=== PATIENT | female | born 1930 | race Caucasian/White ===

== ENCOUNTER 2017-06-09 13:05 | Inpatient (IN) | payer MEDICARE, BC, MEDICAID ==
[2017-06-09] MEDS ORDERED: Morphine 2 MG/ML SYRINGE ONE (14:36)
[2017-06-09 14:47] LABS: #Monocytes 0.4 thou/uL (0.11-0.59); #Neutrophils 6.8 thou/uL (1.40-6.50); %Basophils 0.1 % (0.0-1.0); %Eosinophils 0.2 % (0.0-10.0); %Lymphocytes 11.9 % (21.0-51.0); %Monocytes 5.2 % (0.0-10.0); Hematocrit 41.9 % (36.0-47.0); Mean Platelet Volume 7.1 fL (7.4-10.4); Red Blood Cell (RBC) Count 4.74 mill/uL (4.20-5.40); White Blood Cell (WBC) Count 8.2 thou/uL (4.8-10.8)
[2017-06-09 14:53] LABS: PTT 26.8 SEC (22.9-36.1)
[2017-06-09 15:04] LABS: Bilirubin Negative (Negative); Blood, Urine Trace (Negative); Glucose, Urine (Dipstick) Negative (Negative); Ketone, Urine Negative (Negative); Nitrite Negative (Negative); Protein, Urine (Dipstick) Negative (Neg-Trace); Urobilinogen 0.2 mg/dL (0.2-1.0)
[2017-06-09 15:05] LABS: Bacteria/HPF 4+ HPF (None Seen); RBC/HPF 0-3 HPF (0-3); Squamous Epithelial 0-3 HPF (0-3)
[2017-06-09 15:05] LABS: Lactic Acid - Sepsis 1.7 mmol/L (0.5-2.2)
[2017-06-09 15:08] LABS: ALT (SGPT) 17 U/L (8-55); AST (SGOT) 18 U/L (5-34); Alkaline Phosphatase 92 U/L (40-150); Anion Gap 14 mmol/L (10-20); BUN (Urea Nitrogen) 22 mg/dL (9.8-20.1); Bilirubin, Total 0.5 mg/dL (0.2-1.2); CK (CPK) 56 U/L (29-168); Calc. Creatinine Clearance 0 mL/min (70-130); Calcium 9.7 mg/dL (7.8-10.44); Carbon Dioxide 23 mmol/L (23-31); Chloride 107 mmol/L (98-107); Estimated GFR-MDRD 71; Globulin 3.7 g/dL (2.4-3.5); Protein, Total 7.4 g/dL (6.0-8.3)
[2017-06-09 15:19] LABS: WBC/HPF 21-50 HPF (0-3)
[2017-06-09 15:20] LABS: Hyaline Casts/LPF 0-3 HYALINE CAST LPF (0-3 Hyaline); Yeast-All Forms None Seen HPF (None Seen)
--- NOTE | 2017-06-09 15:31 | RAD ---
RADIOGRAPH PELVIS ONE VIEW: Date: 06-09-17 Time: 3:09 p.m. History: 87-year-old female with traumatic right hip pain after fall. FINDINGS: There is fracture of the right femoral neck with mild superior and mild lateral displacement of the distal fragment. No dislocation. Pelvic ring appears to be grossly intact but the osteopenia could o bscure a mildly displaced or nondisplaced fracture. Degenerative changes at lower lumbar spine and l umbosacral junction. IMPRESSION: Acute, traumatic, closed, displaced right femoral neck fracture. POS: [facility]
--- NOTE | 2017-06-09 15:32 | RAD ---
RADIOGRAPH RIGHT HIP 2 VIEWS: Date: 06/09/17 HISTORY: 87-year-old female status post acute right hip trauma due to fall. FINDINGS: Transverse fracture at subcapital region. Superior and lateral displacement of distal fragment. No d islocation. IMPRESSION: Acute, traumatic, closed, displaced, right subcapital femoral neck fracture. POS: [facility]
[2017-06-09] MEDS ORDERED: cefTRIAXone\\ROCEPHIN 1 GM VIAL ONE (15:42)
[2017-06-09] MEDS ORDERED: Ondansetron HCl/PF 4 MG/2 ML Vial IVP PRN (16:32)
[2017-06-09] MEDS ORDERED: Dextrose 50% Abboject 50 ML SYRINGE SLOW IVP PRN (16:32)
[2017-06-09] MEDS ORDERED: Morphine 2 MG/ML SYRINGE IVP PRN (16:32)
[2017-06-09] MEDS ORDERED: Ondansetron ODT 4 MG TAB PO PRN (16:32)
[2017-06-09] MEDS ORDERED: Dextrose 5% in Water 1,000 ML IV PRN (16:32)
[2017-06-09] MEDS ORDERED: traMADol HCl 50 MG TAB PO PRN ×2 (16:47)
[2017-06-09] MEDS: Acetaminophen 1,000 MG in Premix Bag 1 BAG IVPB SCH ×2 (18:14→23:52)
[2017-06-09] MEDS: Sodium Chloride 0.9% 1,000 ML IV SCH ×2 (18:18→23:52)
--- NOTE | 2017-06-09 18:34 | HP-2 ---
CODE STATUS: FULL. This was discussed with patient's daugther and patient's POA. ATTENDING PHYSICIAN: Noble Hernandez DO PGY-1: Naima Morton DO CHIEF COMPLAINT: Fall HISTORY OF PRESENT ILLNESS: This is a pleasant 87-year-old female with past medical history significant for hypothyroidism, hypertension, and severe Alzheimer's dementia that presented as a transfer from [facility] secondary to a right hip fracture after sustaining a ground level fall. Patient resides at [facility]. Staff at the facility witnessed the patient slowly falling to the ground and landing on her right hip. EMS was called. She was taken to a freestanding emergency room and after a CT was performed, patient was found to have a right hip fracture. She was transferred here to [facility] at the request of family members. Patient had a pelvic x- ray as well as a right hip x-ray performed at [facility] ED. The Orthopedic Service as well as Trauma Service were called to evaluate and then admit the patient. PAST MEDICAL HISTORY: 1. Severe Alzheimer's dementia. 2. Hypertension. 3. Hypothyroidism. 4. Major depressive disorder. 5. Hypokalemia. 6. Iron deficiency anemia. PAST SURGICAL HISTORY: 1. Colostomy 7-8 years ago. 2. Skin cancer excision on upper extremity. ALLERGIES: No allergies have been recorded. MEDICATIONS: 1. Acetaminophen tablet 500 mg q.6 hours as needed for elevated temperature or mild pain. 2. Amlodipine besylate 5 mg daily for essential hypertension. 3. Aricept tablet 10 mg 1 tablet a day for Alzheimer's disease. 4. Ferrous sulfate tablet 325 mg daily. 5. Levothyroxine sodium 25 mcg daily. 6. Potassium tablet 20 mEq 2 times per day. 7. Remeron 7.5 mg daily. 8. Saccharomyces boulardii capsule b.i.d. 9. Zoloft 12.5 mg daily. FAMILY HISTORY: Noncontributory. SOCIAL HISTORY: The patient is currently a long term resident at [facility]. Of note, she has severe Alzheimer's dementia. Her guardian is her . However, when is not available, the daughter is the person that is able to sign on behalf of the patient. This was discussed with the family in the room. The patient's daughter states that she has a notarized letter stating these facts. Patient has no history of alcohol, tobacco or drug use. REVIEW OF SYSTEMS: Limited secondary to patient's severe Alzheimer's dementia. PHYSICAL EXAMINATION: VITAL SIGNS: Blood pressure 141/82, pulse 69, respiratory rate 20, temperature 98.0 degrees Fahrenheit, oxygen saturation 95% on room air. GENERAL: The patient is alert and oriented x1 in no acute distress. She appears well-developed and then she will respond to examiner if called by her preferred name, which is Tory. EYES: Pupils equally round and reactive to light and accommodation. Extraocular muscles intact. Conjunctiva within normal limits. NECK: Supple. CARDIOVASCULAR: The patient has regular rate and rhythm. A 3/6 systolic murmur was noted on exam. Radial pulses and pedal pulses 2+. RESPIRATORY: Normal respiratory effort, no retractions. LUNGS: Clear to auscultation bilaterally. SKIN: Warm and dry without cyanosis. ABDOMEN: Soft, nontender to palpation and bowel sounds are positive in all four quadrants. EXTREMITIES: Upper and lower extremities are neurovascularly intact x4. MUSCULOSKELETAL: Patient is able to move her lower extremities. NEUROLOGIC: No focal deficits. LABORATORY DATA: 1. CBC: White blood cell count 8.2, hemoglobin 13.9, hematocrit 41.9, platelets 183. 2. CMP: Sodium 140, potassium 4.1, chloride 107, bicarbonate 23, BUN 22, creatinine 0.77, glucose 98, calcium 9.7, total bilirubin 0.5, AST 18, ALT 17, alkaline phosphatase 92, total protein 7.4, and albumin 3.7. 3. Lactic acid 1.7. 4. Creatinine kinase 56. 5. Coagulation labs: PT 15.0, INR 1.2, PTT 26.8. 6. Urinalysis showed trace blood, large leukocyte esterase, 21-50, urine white blood cells with 0-3 urine squamous epithelial cells and 4+ urine bacteria. 7. Hip x-ray shows acute traumatic closed displaced right subcapital femoral neck fracture. 8. Pelvis x-ray shows acute traumatic closed displaced right femoral neck fracture. ASSESSMENT AND PLAN: This is an 87-year-old female status post ground level fall. 1. Status post ground level fall. 2. Acute traumatic closed displaced right subcapital femoral neck fracture. 3. The patient is hemodynamically stable. 4. Hypertension. 5. Hypothyroidism. 6. Severe Alzheimer's dementia. The patient will be admitted to the Trauma Service. Orthopedic service has seen and evaluated the patient. Their plan is to take the patient back to the OR once available. This might be later this evening or tomorrow morning. This has been discussed with the family. All paperwork for consent is to be signed at some point today as the daughter may have to leave in the morning and will otherwise not be able to do so. We will continue to monitor the patient and provide adequate pain control. The patient will remain n.p.o. for now. If the decision is made to proceed with surgery tomorrow, then we will let patient eat and make her n.p.o. at midnight. Additionally, we will continue with her home medications for hypertension, hypothyroidism, and Alzheimer's dementia when she is no longer n.p.o. The patient was seen and evaluated by Dr. Noble Hernandez. HANG
[2017-06-09 18:56] VITALS: BMI 20.7
--- NOTE | 2017-06-09 19:08 | RAD ---
RADIOGRAPH CHEST 1 VIEW: 06/09/17 HISTORY: 87-year-old female. Preoperative clearance. FINDINGS: The thoracic aorta is tortuous and ectatic. There is no evidence of air space density, pneumothorax , or pulmonary edema. The lateral costophrenic angles are sharp. IMPRESSION: 1) No acute pulmonary findings. 2) Ectasia of thoracic aorta. blaze [] POS: [facility]
--- NOTE | 2017-06-09 20:45 | CON ---
DATE OF CONSULTATION: 06/09/2017 HISTORY OF PRESENT ILLNESS: We were asked to see patient via the trauma in the emergency room. The patient was brought in from [facility]. She was a witnessed fall where she landed on her right side and sustained a right fractured hip. Her daughter and son are at the bedside. Valeria ent has Alzheimer's, but does answer a few questions, but most of the histories were gathering from the daughter and son. The patient is resting on a gurney, currently in no acute distress. She is a bout ready to get some x-rays of her hip. Family said that per the the [facility] center, she fell and landed right on her hip, not sure she stumbled. No head injury. There was no loss of consciousness. PAST MEDICAL HISTORY: Positive for dementia, hypertension, cancer, thyroid disease. PAST SURGICAL HISTORY: Bowel resection and tonsils. FAMILY HISTORY: Noncontributory. SOCIAL HISTORY: Resides at [facility]. No alcohol or nicotine or drug use. CURRENT MEDICATIONS: Amlodipine, benazepril, levothyroxine, sertraline, mirtazapine, potassium. ALLERGIES: None recorded. REVIEW OF SYSTEMS: Unable to obtain. The patient only answered a few yes or no questions. PHYSICAL EXAMINATION: GENERAL: Pleasant female resting in bed, small frame stature, in no acute distress. Answered few y es or no questions, but otherwise is not conversing freely. Family is giving history for patient. HEENT: Normal exam. No bruises seen about the head. NECK: Supple. Trachea midline. EXTREMITIES: Upper extremities moves little bit, but not following commands. Lower extremities def initely painful over that right hip and any movement of the right lower extremity. She is able to w iggle her toes for me. DP, PT pulses are intact and she has good sensation. ASSESSMENT: Right hip fracture secondary to fall. PLAN: Family will be signing consent. We discussed surgery either trochanter nail versus a hemiart hroplasty. Family is amenable to her having surgery this evening. I have gone over the risks and b enefits and they understand the surgery as it has been explained. Daughter and son will have to sig n for patient as they are power of county attorney. We will keep her n.p.o. We do have a few cases ahead of her. If it starts getting late, we may want to add her on tomorrow morning, and this has been ex plained to the family also. We will get her tucked into the hospital. Orders have been written. This is Bertram Quintanilla PA-C, dictating for Grabiel Flores M.D.
[2017-06-09] MEDS ORDERED: CEFAZOLIN 1 GM VIAL SLOW IVP SCH (22:00)
[2017-06-09] MEDS: Famotidine 20 MG TAB PO SCH (22:49)
[2017-06-10] MEDS: Acetaminophen 1,000 MG in Premix Bag 1 BAG IVPB SCH ×2 (05:09→12:32)
[2017-06-10 05:24] LABS: #Basophils 0.1 thou/uL (0.0-0.2); #Eosinphils 0.1 thou/uL (0.0-0.7); #Lymphocytes 1.5 thou/uL (1.20-3.40); #Monocytes 0.5 thou/uL (0.11-0.59); %Basophils 1.1 % (0.0-1.0); %Eosinophils 1.4 % (0.0-10.0); %Lymphocytes 29.3 % (21.0-51.0); %Monocytes 10.6 % (0.0-10.0); Hematocrit 34.2 % (36.0-47.0); Mean Platelet Volume 7.5 fL (7.4-10.4); Red Blood Cell (RBC) Count 3.87 mill/uL (4.20-5.40); White Blood Cell (WBC) Count 5.1 thou/uL (4.8-10.8)
[2017-06-10 05:44] LABS: Anion Gap 8 mmol/L (10-20); BUN (Urea Nitrogen) 19 mg/dL (9.8-20.1); Calc. Creatinine Clearance 41 mL/min (70-130); Calcium 8.5 mg/dL (7.8-10.44); Carbon Dioxide 24 mmol/L (23-31); Chloride 112 mmol/L (98-107); Estimated GFR-MDRD 69
[2017-06-10] MEDS ORDERED: CEFAZOLIN 1 GM VIAL ONE (06:53)
[2017-06-10] MEDS ORDERED: Sodium Chloride 0.9% 100 ML ONE (06:54)
[2017-06-10] MEDS ORDERED: Fentanyl 100 MCG/2 ML VIAL ONE (07:45)
[2017-06-10] MEDS ORDERED: Ondansetron HCl/PF 4 MG/2 ML Vial ONE (07:54)
[2017-06-10] MEDS ORDERED: Dexamethasone 20 MG/5 ML VIAL ONE (07:54)
[2017-06-10] MEDS ORDERED: Glycopyrrolate 0.2 MG/ML 5 ML SYRINGE ONE (07:54)
[2017-06-10] MEDS ORDERED: Propofol 200 MG/20 ML VIAL ONE (07:54)
[2017-06-10] MEDS ORDERED: PHENYLEPHRINE-NS 100 MCG/ML 10 ML SYRINGE ONE (07:54)
[2017-06-10] MEDS ORDERED: Lidocaine 1% PF 5 ML VIAL ONE (07:54)
[2017-06-10] MEDS ORDERED: Morphine Sulfate 2 MG/ML SYRINGE SLOW IVP PRN (09:19)
[2017-06-10] MEDS ORDERED: Promethazine HCl 25 MG/ML VIAL SLOW IVP PRN (09:19)
[2017-06-10] MEDS ORDERED: Ondansetron HCl/PF 4 MG/2 ML Vial IVP PRN (09:19)
[2017-06-10] MEDS ORDERED: Promethazine HCl 25 MG/ML VIAL IM PRN (09:19)
[2017-06-10] MEDS ORDERED: Levothyroxine Sodium 25 MCG TAB PO SCH ×2 (10:38→11:45)
[2017-06-10] MEDS ORDERED: Non-Formulary Item 1 EACH (Ferrous Sulfate [Ferrous Sulfate] 325 MG) PO SCH (10:38)
[2017-06-10] MEDS ORDERED: Amlodipine 5 MG TAB PO SCH ×2 (10:38→11:45)
[2017-06-10] MEDS ORDERED: Non-Formulary Item 1 EACH (Potassium Chloride [Potassium Chloride] 20 MEQ) PO SCH (10:38)
--- NOTE | 2017-06-10 11:18 | OP ---
DATE OF SURGERY: 06/10/2017 PREOPERATIVE DIAGNOSIS: Right femoral neck fracture, displaced. POSTOPERATIVE DIAGNOSIS: Right femoral neck fracture, displaced. SURGICAL PROCEDURE: Right hip hemiarthroplasty. ANESTHESIA: General. SURGEON: Grabiel Flores M.D. FINANCIAL AID MANAGER: Bertram Quintanilla PA-C. ESTIMATED BLOOD LOSS: Approximately 200 mL IMPLANTS: DePuy Petty size 5 stem was used, a 28 x 41 bipolar cup and a +1.5 head. COMPLICATIONS: None. DRAINS: None. SPECIMEN: None. OUTCOME: Satisfactory. INDICATIONS: The patient is an 87-year-old lady status post ground level fall sustaining a right di splaced femoral neck fracture. After discussion with patient and her family including risks and abbi efits, we decided to proceed with right hip hemiarthroplasty. Informed consent has been obtained. I believe all questions answered. PROCEDURE IN DETAIL: After the induction of general anesthesia, the patient was positioned in a lef t lateral decubitus position and then a sterile prep and drape was performed of the right lower extr emity. Next, a curvilinear incision was made centered over the greater trochanter. After skin was sharply incised, dissection was carried down bluntly to the underlying tensor fascia and gluteal fas viktor. These structures were then incised in line with the skin incision and a Charnley retractor wili baldemar in the wound. The trochanteric bursa was swept off the short external rotators. A retractor wa s then placed under the abductors and the piriformis was identified, released and tagged for eventua l repair. The superior and inferior gemelli also released. Next, the femoral head was removed with a corkscrew device. The acetabulum was inspected and found to be in good condition. Next, an osci llating saw was used to make a femoral neck cut approximately 1 cm proximal to the lesser trochanter . After this was done, a box chisel was used to obtain a starting point at the femoral canal. Next , a T-Handle Awl was passed down the shaft of the femur and then a lateralizing reamer introduced. Progressive T-Handle Awls was then passed until good chatter was achieved on the cortex. This was t hen followed by broaching starting at size 2 and continuing up to a size 5, which gave good fit and fill. Next, #5 broach was left in place and a trial reduction was performed with a +1.5 neck. This gave excellent stability of the hip and what was felt to be amish of equal leg lengths. At t he completion of this, the trial components were removed from the hip. The hip was irrigated with 3 liters of normal saline with Pulsavac and then the final size 5 stem was introduced followed by stefania lication of the bipolar head. The hip was reduced and again found to be very stable. Closure was t hen performed with #1 Vicryl for the capsule and #1 Vicryl to reattach the piriformis, #1 Vicryl als o used for the gluteal fascia and tensor fascia. This followed by 2-0 Vicryl for Aditi's fascia an d subcutaneously, and then nikki for the skin. A Xeroform gauze and tape dressing was applied to the thigh and then patient was transferred to recovery room in stable condition. There were no comp lications. Patient tolerated the procedure well.
[2017-06-10] MEDS ORDERED: Potassium Chloride 20 MEQ TAB PO SCH (11:45)
[2017-06-10] MEDS ORDERED: Ferrous Sulfate 325 MG TAB PO SCH (11:45)
[2017-06-10] MEDS: Famotidine 20 MG TAB PO SCH ×2 (12:29→20:13)
[2017-06-10] MEDS: Sodium Chloride 0.9% 1,000 ML IV SCH ×3 (12:30→20:12)
[2017-06-10] MEDS ORDERED: traMADol HCl 50 MG TAB PO PRN ×2 (13:09)
[2017-06-10] MEDS ORDERED: CEFAZOLIN 1 GM VIAL SLOW IVP SCH (14:00)
--- NOTE | 2017-06-10 14:10 | RAD ---
RIGHT HIP TWO VIEWS: HISTORY: Postop right hip replacement. COMPARISON: 06/09/2017 FINDINGS: A right hip prosthesis has been placed. Postoperative changes are noted. Components appear in adeq uate position and alignment. POS: [facility]
[2017-06-10] MEDS: CEFAZOLIN 1 GM, IV Admixture Fee-Chemo 1 UNITS in Sodium Chloride 0.9% 100 ML IVPB SCH ×2 (14:48→20:12)
--- NOTE | 2017-06-10 15:26 | EKG ---
Test Reason : PREOP Blood Pressure : / mmHG Vent. Rate : 056 BPM Atrial Rate : 056 BPM P-R Int : 156 ms QRS Dur : 068 ms QT Int : 454 ms P-R-T Axes : 081 -31 050 degrees QTc Int : 438 ms Sinus bradycardia Left axis deviation Abnormal ECG Confirmed by DR. Yakov LEE (3) on 06/10/2017 3:25:54 PM Referred By: DIONNA Confirmed By:DR. Yakov LEE
--- NOTE | 2017-06-10 16:59 | PRG ---
DATE OF SERVICE: 06/10/2017 SUBJECTIVE: No acute events overnight. The patient is doing well. She is going for operative fixa tion of her hip fracture today. PHYSICAL EXAMINATION: VITAL SIGNS: Temperature 98.2, heart rate 69, respiratory rate 14, 86%, 129/73 blood pressure. GENERAL: She is alert, no GCS was noted. PULMONARY: Clear bilaterally to auscultation. CARDIOVASCULAR: S1, S2, regular rate and rhythm. ABDOMEN: Soft, nontender, nondistended. Pelvis is tender on the fractured site. LABORATORY FINDINGS: CBC shows WBC 5.1, hemoglobin 11.6, hematocrit 34.2, platelet count 148. Chem istry showed sodium 140, potassium 3.7, chloride 112, bicarbonate 24, BUN 19, creatinine 0.79. No radiological findings today. ASSESSMENT: 1. Status post fall. 2. Left femoral neck fracture. PLAN: Plan will be continued with proper fixation. Postoperatively, will optimize pain management return her home meds to her scheduled medications and begin to set her up [facility] At this time, the patient was seen by Dr. Hernandez at bedside and agrees with the above plan.
[2017-06-10] MEDS: ENTERAL NUTRITION FORMULA PO SCH (19:27)
[2017-06-10] MEDS: [UNRECOGNIZED DRUG - OTHER] PO SCH (19:27)
[2017-06-10] MEDS: Donepezil HCl 10 MG TAB PO SCH (20:13)
[2017-06-10] MEDS: Mirtazapine 15 MG TAB PO SCH (20:13)
[2017-06-10] MEDS ORDERED: HYDROcodone/Acetaminophen 5/325 mg Tablet PO PRN ×2 (23:59)
[2017-06-11] MEDS: CEFAZOLIN 1 GM, IV Admixture Fee-Chemo 1 UNITS in Sodium Chloride 0.9% 100 ML IVPB SCH (05:04)
[2017-06-11] MEDS: Levothyroxine Sodium 25 MCG TAB PO SCH (05:04)
[2017-06-11] MEDS: Ferrous Sulfate 325 MG TAB PO SCH (09:03)
[2017-06-11] MEDS: Potassium Chloride 20 MEQ TAB PO SCH (09:03)
[2017-06-11] MEDS: Famotidine 20 MG TAB PO SCH ×2 (09:03→20:12)
[2017-06-11] MEDS: Enoxaparin Sodium 40 MG/0.4 ML SYRINGE SC SCH (09:04)
[2017-06-11] MEDS: Amlodipine 5 MG TAB PO SCH (09:09)
[2017-06-11] MEDS ORDERED: Ibuprofen 600 MG TAB PO PRN (15:39)
[2017-06-11] MEDS: SMX/TMP 800-160mg/20 ML UDCUP PO SCH (16:54)
[2017-06-11] MEDS: Acetaminophen 500 MG TAB PO SCH (17:28)
[2017-06-11] MEDS: Donepezil HCl 10 MG TAB PO SCH (20:11)
[2017-06-11] MEDS: Mirtazapine 15 MG TAB PO SCH (20:11)
[2017-06-12] MEDS: Acetaminophen 500 MG TAB PO SCH ×5 (00:10→20:20)
[2017-06-12] MEDS: Levothyroxine Sodium 25 MCG TAB PO SCH (06:45)
[2017-06-12] MEDS ORDERED: SMX/TMP 800-160mg/20 ML UDCUP PO SCH ×2 (09:00→20:00)
[2017-06-12] MEDS: Potassium Chloride 20 MEQ TAB PO SCH (09:14)
[2017-06-12] MEDS: Famotidine 20 MG TAB PO SCH ×2 (09:14→20:24)
[2017-06-12] MEDS: Amlodipine 5 MG TAB PO SCH (09:15)
[2017-06-12] MEDS: Ferrous Sulfate 325 MG TAB PO SCH (09:16)
[2017-06-12] MEDS: Enoxaparin Sodium 40 MG/0.4 ML SYRINGE SC SCH (09:16)
[2017-06-12] MEDS: SMX/TMP 800-160mg/20 ML UDCUP PO SCH (19:32)
[2017-06-12] MEDS: Donepezil HCl 10 MG TAB PO SCH (20:24)
[2017-06-12] MEDS: Mirtazapine 15 MG TAB PO SCH (20:24)
[2017-06-13] MEDS: Acetaminophen 500 MG TAB PO SCH ×5 (02:11→23:19)
[2017-06-13] MEDS: Levothyroxine Sodium 25 MCG TAB PO SCH (05:57)
[2017-06-13] MEDS ORDERED: SMX/TMP 800-160mg/20 ML UDCUP PO SCH (09:00)
[2017-06-13] MEDS: Ferrous Sulfate 325 MG TAB PO SCH (09:32)
[2017-06-13] MEDS: Famotidine 20 MG TAB PO SCH ×2 (09:32→20:59)
[2017-06-13] MEDS: Amlodipine 5 MG TAB PO SCH (09:32)
[2017-06-13] MEDS: Potassium Chloride 20 MEQ TAB PO SCH (09:33)
[2017-06-13] MEDS: Enoxaparin Sodium 40 MG/0.4 ML SYRINGE SC SCH (09:42)
--- NOTE | 2017-06-13 10:35 | PRG-2 ---
DATE OF SERVICE: 06/13/2017 SUBJECTIVE: This is an 87-year-old woman status post right hip hemiarthroplasty day #3. Per the patient's daughter, the patient has been sleeping a lot more than usual. She sleeps throughout the night and then well into the day. She has had a decreased appetite and it has been difficult to get her to eat or take her medications. The patient has no desire to work with PT or OT. During rounds this morning we discussed with [id number] the potential for palliative care or hospice. The [id number] stated that she had been thinking about this option as she does not want her mother to suffer. Palliative Care will be consulted to have further discussion with the patient and patient's family The patient did fever overnight with a temperature of 101. She was recently found to have Klebsiella pneumoniae urinary tract infection. She is on Bactrim day #3. The patient was asleep upon exam and did not awaken for a conversation. OBJECTIVE: VITAL SIGNS: Blood pressure 138/72, pulse 71, respiratory rate 18, and T-max within the last 24 hours 101 degree Fahrenheit. Oxygen saturation 97% on room air. GENERAL: The patient was asleep on exam, she did not awaken for conversation. She is sleeping comfortably and does not seem to be in any distress. PULMONARY: Lungs are clear to auscultation bilaterally. Equal rise and fall of the chest. CARDIOVASCULAR: Regular rate and rhythm. ABDOMEN: Nondistended. LABORATORY FINDINGS: There were no labs or imaging to review this morning. ASSESSMENT: 1. Status post ground level fall, day #5. 2. Status post right hip hemiarthroplasty day #3. 3. Decreased appetite. 4. Febrile with T-max 101 secondary to Klebsiella pneumoniae and urinary tract infection. 5. Severe Alzheimer dementia. 6. Hypertension. 7. Hypothyroidism. 8. Major depressive disorder. 9. Iron deficiency anemia. PLAN: We will optimize pain management. Due to excessive sleepiness, Remeron was discontinued as this is used at night to assist patient with sleep. Since the patient has had a decreased appetite and has not had good p.o. intake Ensure was added for nutrition. During rounds, a conversation was had with the patient's daughter regarding hospice and palliative care. Palliative care has been consulted at the request of the family. We will get in contact with palliative care, so they can answer any questions the family might have. We will continue medical management and treatment for urinary tract infection. The patient is currently day #3 on Bactrim. Once the patient is afebrile for 24 hours, may consider discharge back to [facility] where she resides. At this time, the patient was seen by Dr. Hernandez at bedside and he agrees with the above plan. The patient was seen and evaluated by Dr. Hernandez. [facility]ITALLaura
--- NOTE | 2017-06-13 12:39 | PQF ---
[employer] Wedding Cake Designer Crystal Reports Winform ViewerKILFOY,GISSELLE MEJIA MD [id number] [facility] A- [id number] CLINICAL DOCUMENTATION IMPROVEMENT CLARIFICATION FORM: ICD-10 Updated PLEASE DO AN ADDENDUM TO THE PROGRESS NOTE WITH ANY DOCUMENTATION UPDATES OR ADDITIONS AND CARRY THROUGH TO DC SUMMARY. THANK YOU. DATE: 06-13-17 ATTN: DR. TERRELL Please exercise your independent, professional judgment in responding to the clarification form. Clinical indicators are provided on the bottom of this form for your review Please check appropriate box: [ x] UTI UTI Site: [ ] Kidney [ ] Ureter [ ] Bladder [ ] Urethra [ x ] Unable to determine Specify Organism (if known): klebsiella pneumonia [ ] Unknown organism [ ] Contaminated urine specimen without UTI [ ] Other diagnosis [ ] Unable to determine In addition, please specify: Present on Admission (POA): [ x ] Yes [ ] No [ ] Unable to determine For continuity of documentation, please document condition throughout progress notes and discharge summary. Thank You. CLINICAL INDICATORS - SIGNS / SYMPTOMS / LABS 06-09 UA - LEUKOCYTE ESTERASE - LARGE; BACTERIA 4+; BLOOD - TRACE RISK FACTORS H&P: SEVERE ALZHEIMER'S DEMENTIA (ALERT AND ORIENTED X1) [place] RESIDENT TREATMENT: MAR - BACTIM 06-11 THANK YOU, JACQUELINE (This form is maintained as a part of the permanent medical record) 2014 [employer] All Rights Reserved Jacqueline Gonzalez RN, BS [email or web address] [facility]
[2017-06-13] MEDS: Donepezil HCl 10 MG TAB PO SCH (20:59)
[2017-06-14] MEDS: Levothyroxine Sodium 25 MCG TAB PO SCH (06:10)
[2017-06-14] MEDS: Acetaminophen 500 MG TAB PO SCH (06:10)
[2017-06-14 06:14] LABS: Band 2 % (5-11); Hematocrit 34.8 % (36.0-47.0); Mean Platelet Volume 7.5 fL (7.4-10.4); Myelocyte 1 % (0-0); Neutrophil 56 % (42-75); Reactive Lymphocytes 3 % (0-10)
[2017-06-14] MEDS: Ferrous Sulfate 325 MG TAB PO SCH (09:34)
[2017-06-14] MEDS: Famotidine 20 MG TAB PO SCH (09:35)
[2017-06-14] MEDS: Potassium Chloride 20 MEQ TAB PO SCH (09:36)
[2017-06-14] MEDS: Amlodipine 5 MG TAB PO SCH (09:37)
[2017-06-14] MEDS: Enoxaparin Sodium 40 MG/0.4 ML SYRINGE SC SCH (09:37)
--- NOTE | 2017-06-14 09:39 | RAD ---
FRONTAL RADIOGRAPH CHEST: Date: 06-14-17 Comparison: 06-09-17 History: Fever. FINDINGS: There is atherosclerotic calcification of the aortic arch. There is lobulated calcific density overl leonor the medial aspect of the left humeral head, new when compared to 06-09-17, and of uncertain cli nical significance. Perhaps this is something external to the patient. If there are symptoms referab le to this region, dedicated left shoulder imaging is advised. There is no pneumothorax, pleural flu id, focal consolidation or alveolar edema. IMPRESSION: Incidental findings as detailed above. No focal consolidation or alveolar edema. POS: [facility]
[2017-06-14 11:55] VITALS: BP 118/73; TEMP 98.8
--- NOTE | 2017-06-14 14:57 | DIS ---
DATE OF ADMISSION: 06/09/2017 DATE OF DISCHARGE: 06/14/2017 ADMISSION DIAGNOSES: 1. Status post ground level fall. 2. Acute traumatic right subcapital femoral neck fracture. 3. Hypertension. 4. Hypothyroidism. 5. History of Alzheimer's dementia. 6. Acute traumatic pain. 7. Chronic iron deficiency anemia. DISCHARGE DIAGNOSES: 1. Status post ground level fall. 2. Acute traumatic right subcapital femoral neck fracture. 3. Hypertension. 4. Hypothyroidism. 5. History of Alzheimer's dementia. 6. Acute traumatic pain. 7. Chronic iron deficiency anemia. 8. Uncomplicated urinary tract infection, present on admission. MAKE READY WORKER: Dr. Flores, Orthopedic Surgery. PROCEDURES: On 06/10/2017, right hip hemiarthroplasty with Dr. Flores, Orthopedic Surgery. HOSPITAL COURSE: Ms. Donna Mcconnell is an 87-year-old female who sustained a ground level fall at [facility]. This fall was witnessed. She was evaluated and found to have a right hip fracture . She was transferred to [facility] for higher level of care and at the request of family members. She was admitted by Trauma Services with Orthopedic Surgery for consultation. Patient und erwent operative fixation of her injuries on 06/10/2017. Postoperatively, the patient was able to t olerate a p.o. diet. Pain was controlled via p.o. analgesics. However, the patient did intermitten tly refuse physical therapy and medications. She was noted to be febrile on 06/11/2017. Her urinal ysis and microbiology was significant for Klebsiella UTI, which was present on admission. She was t reated with appropriate antibiotics. Patient was hemodynamically stable on the day of discharge. T he patient was discharged back to her [facility] care facility. DISCHARGE DISPOSITION: Return to group home/long-term care facility. DISCHARGE CONDITION: Fair. PHYSICAL EXAMINATION: VITAL SIGNS: Temperature 98.6, pulse 72, respirations 16, O2 sat 96% on room air, blood pressure 13 9/78. GENERAL: Well-developed elderly appearing female in no acute distress, resting in bed. PULMONARY: Normal work of breathing, symmetric rise. CARDIOVASCULAR: Regular rate and rhythm. GASTROINTESTINAL: Abdomen is soft, nontender, nondistended. MUSCULOSKELETAL: Moves all extremities x4. NEUROLOGIC: No focal deficit noted. LABORATORY DATA: WBC 5.0, hemoglobin 10.9, hematocrit 34.8, platelet count 191. DISCHARGE MEDICATIONS: The patient was discharged on her home medication regimen with the addition of Bactrim DS b.i.d. x5 days and aspirin 325 mg p.o. daily to be continued until patient follows up with Orthopedic Surgery and discontinued by them. DISCHARGE MEDICATIONS: As documented in electronic medical record. FOLLOWUP APPOINTMENTS: She is to follow up with primary care provider in 7-10 days post-hospitaliza tion. The patient should follow up with Dr. Flores from Orthopedic Surgery in approximately 14 da ys. The patient does not need to follow formally with Trauma Service, but may call her office with any questions. DISCHARGE INSTRUCTIONS: The patient should maintain hip precautions. She should work with physical therapy. She may have a general diet. She should have Ensure t.i.d. for supplementation. This is merely a summary of the patient's hospitalization. For more in depth information, please see her edical record in its entirety.
[2017-06-14] MEDS ORDERED: Sulfameth/Trimethoprim DS 800-160mg TAB PO SCH (21:00)
== END 2017-06-14 11:40 | DRG 470 ==
LOC: ERS 13:05 → SURG A 16:30
PROVIDERS: ADMIT Orthopaedic Surgery; ATTEND Orthopaedic Surgery
PROC: 0SRR0JA Replacement of Right Hip Joint, Femoral Surface with Synthetic Substitute, Uncemented, Open Approach (ICD-10-PCS; principal; 2017-06-10)
PROC: 3E0T3BZ Introduction of Anesthetic Agent into Peripheral Nerves and Plexi, Percutaneous Approach (ICD-10-PCS; 2017-06-10)
DX: S72.011A Unspecified intracapsular fracture of right femur, initial encounter for closed fracture (principal); G30.9 Alzheimer's disease, unspecified; N39.0 Urinary tract infection, site not specified; I10 Essential (primary) hypertension; F02.80 Dementia in other diseases classified elsewhere, unspecified severity, without behavioral disturbance, psychotic disturbance, mood disturbance, and anxiety; D50.9 Iron deficiency anemia, unspecified; F32.9 Major depressive disorder, single episode, unspecified; B96.1 Klebsiella pneumoniae [K. pneumoniae] as the cause of diseases classified elsewhere; E03.9 Hypothyroidism, unspecified; Z68.20 Body mass index [BMI] 20.0-20.9, adult; R63.0 Anorexia; Z85.828 Personal history of other malignant neoplasm of skin; W19.XXXA Unspecified fall, initial encounter; Y92.129 Unspecified place in nursing home as the place of occurrence of the external cause
CPT/HCPCS: 36415; 51702; 71010; 72170; 80048; 80053; 81003; 81015; 82550; 83605; 85007; 85025; 85027; 85610; 85730; 86850; 86900; 86901; 87077; 87086; 87186; 93005; 93010; 94760; 96365; 96375; G0390; G8978-GP-CL; G8979-GP-CJ; G8987-GO-CM; G8988-GO-CK; J0131; J0690; J0696; J1100; J1650; J1956; J2001; J2270; J2405; J2704; J3010; J7050